=== PATIENT | male | born 1980 | race Caucasian/White ===

== ENCOUNTER 2016-12-01 23:55 | Emergency (ER) | payer SELFPAY ==
[~2016-12-01] VITALS: Wt 72.5 kg
[2016-12-02] MEDS ORDERED: HYDROCODONE/APAP (5/325) TAB PO STA (01:52)
--- NOTE | 2016-12-02 03:41 | RADRPT ---
PROCEDURE: Chest. CLINICAL INDICATION: Chest pain. TECHNIQUE: Single frontal view of the chest was obtained. COMPARISON: None. FINDINGS: The cardiac silhouette is within normal limits. The aortic arch is unremarkable. There is no focal consolidation, vascular congestion or pleural effusion. There is no pneumothorax. IMPRESSION: No evidence for active cardiopulmonary disease. .Tello Moses MD, MD Date Time Electronically viewed and signed by .Tello Moses MD, on 12/02/2016 03:41 .T/
--- NOTE | 2016-12-02 03:47 | RADRPT ---
PROCEDURE: XR nasal bones. CLINICAL INDICATION: Injury and pain. TECHNIQUE: Four views including AP and lateral views were performed. COMPARISON: None. FINDINGS: There is a fracture of the nasal bone. The paranasal sinuses are unremarkable. There is no opacifi cation, air-fluid level or mass identified. IMPRESSION: Nasal bone fracture. .Tello Moses MD, MD Date Time Electronically viewed and signed by .Tello Moses MD, on 12/02/2016 03:47 .T/
[2016-12-02] MEDS ORDERED: HYDR-906 PO (04:08)
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
== END 2016-12-02 04:40 | disposition home or self-care (01) ==
LOC: FTE 23:55
DX: S02.2XXA Fracture of nasal bones, initial encounter for closed fracture (principal); S20.219A Contusion of unspecified front wall of thorax, initial encounter; Y04.0XXA Assault by unarmed brawl or fight, initial encounter
CPT/HCPCS: 70160; 71010

== ENCOUNTER 2016-12-03 17:49 | Emergency (ER) | payer MEDICAID ==
[~2016-12-03] VITALS: Ht 167.6 cm; Wt 73.0 kg
[~2016-12-03 17:49] MED LIST: HYDR-906 PO
[2016-12-03 18:02] VITALS: Ht 167.6 cm; Wt 73.0 kg
[2016-12-03] MEDS ORDERED: HYDROCODONE/APAP (5/325) TAB PO ONE (21:00)
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
[2016-12-03 22:04] VITALS: BP 162/97; PULSE 85; RESP 20; TEMP 98.2
== END 2016-12-03 22:05 | disposition home or self-care (01) ==
LOC: FTE 17:49
DX: R51 Headache (principal)
CPT/HCPCS: 99283